=== PATIENT | male | born 1990 | race African-American/Black ===

== ENCOUNTER 2017-03-21 14:45 | Emergency (ER) | payer SELFPAY ==
[~2017-03-21] VITALS: Ht 185.4 cm; Wt 72.6 kg
[~2017-03-21 14:45] MED LIST: HYDR25TA PO; POTASSIUM CHLO10 MEQ PO
[2017-03-21 15:03] VITALS: BP 142/68
[2017-03-21] MEDS ORDERED: ONDANSETRON ODT 4 MG TAB.RAPDIS. PO ONE (15:15)
[2017-03-21] MEDS ORDERED: ONDA4TAB10 SL (15:43)
--- NOTE | 2017-03-21 15:43 | PHYS DOC ---
Past Medical History Past Medical History: No Pertinent History Past Surgical History: No Surgical History Alcohol Use: Heavy Additional Information: DRINKS AT LEAST 2 BEERS EVERYDAY Drug Use: Marijuana Adult General Chief Complaint Chief Complaint: NAUSEA/VOMITING/DIARRHA HPI HPI Patient is a 26 year old male who presents with vomiting and diarrhea. The patient reports one day history of illness with 2 episodes of vomiting and diarrhea today. Denies fevers or chills, hematemesis, abdominal pain, hematochezia or melena, dysuria or hematuria. States he was up late last night caring for his daughter who had similar symptoms. No known past medical history , denies abdominal surgeries. He drinks whiskey daily. Review of Systems Review of Systems Constitutional: Denies fever or chills HENT: Denies nasal congestion or sore throat Respiratory: Denies cough or shortness of breath Cardiovascular: Denies chest pain GI: Reports nausea, vomiting, diarrhea. Denies abdominal pain, bloody stools : Denies dysuria or hematuria Musculoskeletal: Denies back pain or joint pain Integument: Denies rash or skin lesions Neurologic: Denies headache, focal weakness or sensory changes All other systems were reviewed and found to be within normal limits, except as documented in this note. Current Medications Current Medications Current Medications Medications (Trade) Dose Ordered Sig/Caprice Start Time Stop Time Status Last Admin Dose Admin Ondansetron HCl (Zofran Odt) 4 mg 1X ONCE 03/21/17 15:15 03/21/17 15:16 DC 03/21/17 15:21 4 MG Allergies Allergies Allergies Coded Allergies Type Severity Reaction Last Updated Verified No Known Drug Allergies 03/09/16 No Physical Exam Physical Exam Constitutional: Well developed, well nourished, no acute distress, non-toxic appearance. HENT: Normocephalic, atraumatic, bilateral external ears normal, oropharynx moist, nose normal. Eyes: conjunctiva normal, no discharge. Neck: supple, no stridor. Cardiovascular: RRR, no murmurs, no edema. Lungs & Thorax: LCTAB, no wheezing, no respiratory distress. Abdomen: soft, no focal abdominal tenderness, no rebound/guarding, no masses or pulsatile masses, nondistended. Skin: Warm, dry, no erythema, no rash. Back: No CVA tenderness. Extremities: No tenderness, no edema. Neurologic: Alert and oriented X 3, no focal deficits noted. Psychologic: Affect normal, judgement normal, mood normal. Current Patient Data Vital Signs Vital Signs Date Time Temp Pulse Resp B/P (MAP) Pulse Ox O2 Delivery O2 Flow Rate FiO2 03/21/17 15:03 97.8 91 22 142/68 (92) 100 Room Air 97.8 EKG EKG [] Radiology/Procedures Radiology/Procedures [] Course & Med Decision Making Course & Med Decision Making Pertinent Labs and Imaging studies reviewed. (See chart for details) The patient presents with vomiting and diarrhea. He is well-appearing without evidence of dehydration, no focal tenderness on exam, not actively vomiting here. Vitals are stable, afebrile, not tachycardic. Gave ODT Zofran here and he tolerated oral fluid challenge. Likely viral gastroenteritis with recent sick contact with his daughter. Recommend rest, hydration with small sips of clear liquids including Gatorade, Tylenol or ibuprofen as needed for pain or fever, Zofran for nausea. Follow-up with primary care in 2-3 days if not improving. Return to the emergency department for high fever, severe pain, uncontrolled vomiting, any otherwise worsening condition. Discharged home in stable condition. Dragon Disclaimer Dragon Disclaimer This electronic medical record was generated, in whole or in part, using a voice recognition dictation system. Departure Departure Impression: Primary Impression: Nausea vomiting and diarrhea Disposition: 01 HOME, SELF-CARE Condition: STABLE Referrals: NO PCP (PCP) ZENAIDA SILVA MD Patient Instructions: Viral Gastroenteritis, [id number] Additional Instructions: You were seen in the emergency department today for vomiting & diarrhea. This is likely caused by a virus. It should improve within 2-3 days. Please rest, drink fluids including gatorade, use zofran as needed for nausea, take tylenol or ibuprofen as needed for pain or fever. Follow up as needed with Dr. Silva in the primary care clinic in 2-3 days. Come back for high fever, severe pain, uncontrolled vomiting, any otherwise worsening condition. Scripts Ondansetron (ZOFRAN ODT) 4 Mg Tab.rapdis 1 TAB SL Q8HRS, #10 TAB Prov: MONICO REBOLLEDO MD 03/21/17 MONICO REBOLLEDO MD Mar 21, 2017 15:43
== END 2017-03-21 15:51 | disposition home or self-care (01) ==
LOC: ER 14:45
DX: R11.2 Nausea with vomiting, unspecified (principal); R19.7 Diarrhea, unspecified
CPT/HCPCS: 99283; Q0162

== ENCOUNTER 2019-07-21 18:10 | Emergency (ER) | payer OTHER ==
[~2019-07-21] VITALS: Ht 182.9 cm; Wt 93.0 kg
[~2019-07-21 18:10] MED LIST changes: +ONDA4TAB10 SL; +POTA10TA12 PO; -POTASSIUM CHLO10 MEQ PO
[2019-07-21 18:17] VITALS: BP 163/106
--- NOTE | 2019-07-21 19:18 | PHYS DOC ---
Past Medical History Past Medical History: Anxiety (ARACELI PALMER APRN) Past Surgical History: No Surgical History (ARACELI PALMER APRN) Smoking Status: Never Smoker Alcohol Use: Heavy Drug Use: Marijuana (ARACELI PALMER APRN) Attending Signature I have participated in the care of this patient and I have reviewed and agree with all pertinent clinical information above including history, exam, and recommendations. (MARIO BAE MD) Adult General Chief Complaint Chief Complaint: ANXIETY/PANIC ATTACK HPI HPI Patient is a 28 year old male with history of anxiety who presents to the ED today with complaining of an anxiety attack. Patient states he went outside, smoked marijuana for a while, return back to the house and try to work out, he states he became short of air and became more anxious, he stopped working out and came to the ED. He states he used to take antianxiety medication but has not taken it for a long time. Denies any suicidal or homicidal ideations. He states he feels better after being in the emergency room for a while. (ARACELI PALMER APRN) Review of Systems Review of Systems Constitutional: Denies fever or chills [] Eyes: Denies change in visual acuity, redness, or eye pain [] HENT: Denies nasal congestion or sore throat [] Respiratory: Denies cough or shortness of breath [] Cardiovascular: No additional information not addressed in HPI [] GI: Denies abdominal pain, nausea, vomiting, bloody stools or diarrhea [] : Denies dysuria or hematuria [] Musculoskeletal: Denies back pain or joint pain [] Integument: Denies rash or skin lesions [] Neurologic: Denies headache, focal weakness or sensory changes [] Psych: Reports marijuana use and anxiety attack All other systems were reviewed and found to be within normal limits, except as documented in this note. (ARACELI PALMER APRN) Allergies Allergies Allergies Coded Allergies Type Severity Reaction Last Updated Verified No Known Drug Allergies 03/09/16 No (MARIO BAE MD) Physical Exam Physical Exam Constitutional: Well developed, well nourished, no acute distress, non-toxic appearance. [] HENT: Normocephalic, atraumatic, bilateral external ears normal, oropharynx moist, no oral exudates, nose normal. [] Eyes: PERRLA, EOMI, conjunctiva normal, no discharge. [] Neck: Normal range of motion, no tenderness, supple, no stridor. [] Cardiovascular:Heart rate regular rhythm, no murmur [] Lungs & Thorax: Bilateral breath sounds clear to auscultation [] Abdomen: Bowel sounds normal, soft, no tenderness, no masses, no pulsatile masses. [] Skin: Warm, dry, no erythema, no rash. [] Back: No tenderness, no CVA tenderness. [] Extremities: No tenderness, no cyanosis, no clubbing, ROM intact, no edema. [] Neurologic: Alert and oriented X 3, normal motor function, normal sensory function, no focal deficits noted. [] Psychologic: Affect normal, judgement normal, mood normal. [] (ARACELI PALMER APRN) Current Patient Data Vital Signs Vital Signs Date Time Temp Pulse Resp B/P (MAP) Pulse Ox O2 Delivery O2 Flow Rate FiO2 07/21/19 18:17 98.2 92 17 163/106 (125) 98 Room Air 98.2 (MARIO BAE MD) EKG EKG [] (ARACELI PALMER APRN) Radiology/Procedures Radiology/Procedures [] (ARACELI PALMER APRN) Course & Med Decision Making Course & Med Decision Making Pertinent Labs and Imaging studies reviewed. (See chart for details) This is a 28-year-old male patient presenting to the ED today complaining of an anxiety attack that began after smoking marijuana and trying to walk out. Has history of anxiety, no suicidal or homicidal ideations. We talked about coping mechanism for anxiety. Patient was discharged to home. Provided resources for follow-up. Discouraged from using marijuana. (ARACELI PALMER APRN) Dragon Disclaimer Dragon Disclaimer This electronic medical record was generated, in whole or in part, using a voice recognition dictation system. (ARACELI PALMER APRN) Departure Departure Impression: Primary Impression: Anxiety Additional Impression: Marijuana use Disposition: 01 HOME, SELF-CARE Condition: STABLE Referrals: RAMONA CEBALLOS (PCP) follow up with your doctor in 1 week Patient Instructions: Anxiety and Panic Attacks, Marijuana Abuse-Brief Additional Instructions: Please consider getting help for marijuana use from the resources provided. Consider pushing fluids. Follow-up with your doctor in 1 to 2 weeks Problem Qualifiers ARACELI PALMER APRN Jul 21, 2019 19:18 MARIO BAE MD Jul 21, 2019 19:49
== END 2019-07-21 19:20 | disposition home or self-care (01) ==
LOC: ER 18:10
DX: F41.9 Anxiety disorder, unspecified (principal); F12.90 Cannabis use, unspecified, uncomplicated; F10.20 Alcohol dependence, uncomplicated; Y90.9 Presence of alcohol in blood, level not specified; R06.02 Shortness of breath
CPT/HCPCS: 99281